=== PATIENT | female | born 1965 | race Hispanic/Latino ===

== ENCOUNTER 2019-02-01 14:35 | Emergency (ER) | payer OTHER, SELFPAY ==
[2019-02-01 14:35] VITALS: BP 98/75; PULSE 73; RESP 15; TEMP 36.6; O2SAT 97
[2019-02-01] MEDS: PROPARACAINE 0.5% OPHTH SOL 1 DROPS EYE-BOTH (15:00)
--- NOTE | 2019-02-01 15:01 | ED_ITS ---
HPI - Eye Problem General Chief complaint: Eye Problems Stated complaint: got chemicals in eyes at work Time Seen by Provider: 02/01/19 14:53 Source: patient Mode of arrival: ambulatory Limitations: no limitations History of Present Illness HPI Narrative: Patient complains of burning in her eyes after chlorine splashed in her eyes while at work. Patient states she went to the eye wash station washed her eyes for about 25 minutes before coming to the emergency department. Patient states she does were glasses for far vision, but was not wearing glasses at the time of the incident. She denies wearing contact lenses. Patient states that her vision is slightly blurry, but otherwise seems more or less normal. Patient denies any chemical injury to any other part of her body. Related Data Previous Rx's Medication Instructions Recorded ketorolac 1 drop EYE-BOTH QID #5 ml 02/01/19 Allergies Allergy/AdvReac Type Severity Reaction Status Date / Time No Known Drug Allergies Allergy Verified 02/01/19 14:42 Review of Systems Constitutional Denies chills, Denies fever(s), Denies lethargy and Denies weakness Eyes Reports blurry vision, Reports irritation and Denies loss of vision ENT Ears, Nose, Mouth, and Throat: Denies change in voice, Denies neck pain and Denies sore throat Cardiovascular Denies chest pain, Denies irregular heart rhythm, Denies lightheadedness, Denies palpitations, Denies dyspnea, Denies dyspnea on exertion and Denies orthopnea Respiratory Denies cough, Denies dyspnea, Denies dyspnea on exertion and Denies wheezing Gastrointestinal Gastrointestinal: Denies abdominal pain, Denies change in bowel habits, Denies diarrhea, Denies nausea and Denies vomiting Genitourinary Denies hematuria, Denies flank pain, Denies urinary incontinence and Denies urinary urgency Musculoskeletal Denies neck pain Integumentary/Breasts Denies pruritus, Denies erythema, Denies rash and Denies wounds Neurologic Denies confusion, Denies loss of vision and Denies weakness Psychiatric Denies anxiety, Denies confusion, Denies depression, Denies homicidal ideation and Denies suicidal ideation Endocrine Denies palpitations Hematologic/Lymphatic Denies easy bruising Allergic/Immunologic Denies wheezing PFSH Medical History Healthy adult (Acute) Social History Smoking Status: Smoker, status unknown Social History Smoking Status: Smoker, status unknown Exam Initial Vital Signs Initial Vital Signs: Vital Signs Temperature 97.9 F 02/01/19 14:35 Pulse Rate 73 02/01/19 14:35 Respiratory Rate 15 02/01/19 14:35 Blood Pressure 98/75 02/01/19 14:35 Pulse Oximetry 97 02/01/19 14:35 Const General: cooperative and well developed Nutritional Appearance: well nourished Orientation: alert, awake, oriented x3 and not confused [facility] Head: normocephalic and atraumatic Ears: external ears normal Nose: external nose normal and No nasal discharge Face and sinus: face symmetric and No dry mucous membranes Mouth: oral mucosae normal and moist mucous membranes Teeth and gingiva: dentition normal Eyes General: appearance normal, both eyes and all related structures Eyelids: eyelids normal Conjunctivae: conjunctival abnormality (Injection, tearing) bilaterally Sclera: sclerae normal Pupils: PERRL EOM: EOM intact bilaterally Other: Fluorescein exam negative Neck Neck: normal visual inspection, trachea midline, No lymphadenopathy, No midline deformity and No JVD Lymphatic: No lymphedema Chest Chest: normal inspection of the chest Resp Effort & Inspection: normal respiratory effort, able to speak in complete sentences, no respiratory distress and no use of accessory muscles Skin General: no rashes or lesions noted, No jaundice and No petechiae Neuro General: alert, oriented x3, gait normal and no focal motor deficits Speech: speech normal Psych Appearance: well kempt Mental Status: mental status grossly normal Attitude: cooperative Thought Content: normal and suicidality Judgment: judgment good Course Course Narrative: Eye pH was performed on the patient's eyes, and found to be 7 bilaterally. Visual acuity was mildly decreased, but it is unclear what the patient's baseline is. Fluorescein exam did not show any abrasions. Patient was found to be feeling much better after proparacaine. We have discussed home management of symptoms, as well as the usual indications for return. We have also discussed the need for follow-up with Ophthalmology, should the patient experience any further issues with her eyes or eye sight. Orders Ordered: Discontinued Medications Diphtheria/Tetanus/Acell Pertussis (Adacel) 0.5 ml IM .ONCE ONE Stop: 02/01/19 15:08 Last Admin: 02/01/19 15:09 Dose: 0.5 ml Proparacaine HCl (Parcaine 0.5% Ophth Genet) 1 drops EYE-BOTH NOW ONE Stop: 02/01/19 15:00 Last Admin: 02/01/19 15:00 Dose: 1 drop Vital Signs - 8 hr 02/01/19 14:35 02/01/19 15:10 Temperature 97.9 F Pulse Rate 73 72 Respiratory Rate 15 16 Blood Pressure 98/75 Blood Pressure [Left Arm] 96/46 L Pulse Oximetry 97 97 MDM - Eye Problem Medical Records Attestation: I reviewed the patient's medical records. Discharge Plan Departure Patient Disposition: Home Clinical Impression: Acute chemical conjunctivitis Qualifiers: Laterality: bilateral Qualified Code(s): H10.213 - Acute toxic conjunctivitis, bilateral Discharge Date/Time: 02/01/19 15:29 Interventions: ED Discharge Assessment Last Done: 02/01/19 15:25 Instructions: DI for Chemical Eye Burn Prescriptions: New ketorolac 0.4 % drops 1 drop EYE-BOTH QID Qty: 5 RF: 0 Referrals: [facility] [Provider Group] (Follow-up as needed if your eyes worsen over the course of the rest of the week.)
--- NOTE | 2019-02-01 15:06 | PC.NURSE ---
reports while cleaning (soap and chlorine) sprayed unto bilateral eyes, occured at 2pm. denies other injuries. denies wearing gogles at work.
[2019-02-01] MEDS: TET,DIPH,PERTUSS(ACELL),VAC/PF 0.5 ML SYRINGE IM (15:09)
[2019-02-01 15:10] VITALS: BP 96/46; PULSE 72; RESP 16; O2SAT 97
== END 2019-02-01 15:29 | disposition home or self-care (01) ==
LOC: ED 15:31
PROVIDERS: Emergency Provider Emergency Medicine
DX: H10.213 Acute toxic conjunctivitis, bilateral (principal); Y99.0 Civilian activity done for income or pay; Z23 Encounter for immunization
CPT/HCPCS: 90471; 99283; 90715

== ENCOUNTER 2020-05-13 04:36 | Emergency (ER) | payer OTHER, SELFPAY ==
--- NOTE | 2020-05-13 04:41 | ED_ITS ---
HPI - General Adult General Chief complaint: Wound/Laceration Stated complaint: head cut/bleeding neck hurts done at work Time Seen by Provider: 05/13/20 04:37 Source: patient Mode of arrival: Ambulatory Limitations: no limitations History of Present Illness HPI narrative: 55-year-old female here for evaluation of a cut to her head and also neck pain. She states that she was at work. 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 She states that metal came down hitting her on the top of her head. She sustained a cut and it started to bleed. Happened approximately 5 minutes prior to arrival here in the ER. Is having some neck pain secondary to the head injury. Does not know when her last tetanus shot was. There was no loss of consciousness. Patient not on anticoagulation. Related Data Previous Rx's Medication Instructions Recorded ketorolac 1 drop EYE-BOTH QID #5 ml 02/01/19 Allergies Allergy/AdvReac Type Severity Reaction Status Date / Time No Known Drug Allergies Allergy Verified 02/01/19 14:42 Review of Systems Constitutional Constitutional: Reports headache(s) ENT Ears, Nose, Mouth, and Throat: Reports headache(s) and Reports neck pain Musculoskeletal Musculoskeletal: Reports neck pain Integumentary/Breasts Comments: Cut to top of head Neurologic Neurologic: Reports headache(s) Hematologic/Lymphatic Hematologic/Lymphatic: Denies easy bleeding and Denies easy bruising Patient History Medical History Healthy adult (Acute) Social History Smoking Status: Smoker, status unknown Smoking Status: Smoker, status unknown alcohol intake frequency: 0-2 drinks per day Substance Use Type: does not use Exam Initial Vital Signs Initial Vital Signs: Vital Signs Temperature 98.5 F 05/13/20 04:46 Pulse Rate 85 05/13/20 04:46 Respiratory Rate 16 05/13/20 04:46 Blood Pressure 142/75 H 05/13/20 04:46 Pulse Oximetry 99 05/13/20 04:46 Const General: healthy appearing Limitations: mental status not altered HENMT Head: laceration Back/Spine/Pelvis Cervical Spine: cervical muscular tenderness and No cervical spinal tenderness Skin Other: 4 cm laceration to the crown of her head. Neuro General: patient alert, patient awake and patient oriented x3 Procedures Laceration Repair Laceration 1: Site: scalp Size (cm): 4 Description: linear Depth: simple, single layer Local Anesthetic: lidocaine 1% and with epi Amount of anesthesia used (mL): 5 Pre-repair: wound explored Skin layer closed with: dora (Four dora) Course Orders Ordered: Discontinued Medications Acetaminophen (Tylenol) 975 mg PO NOW ONE Stop: 05/13/20 04:54 Last Admin: 05/13/20 04:59 Dose: 975 mg Documented by: MARILYN Diphtheria/Tetanus/Acell Pertussis (Adacel) 0.5 ml IM .ONCE ONE Stop: 05/13/20 04:54 Last Admin: 05/13/20 05:00 Dose: 0.5 ml Documented by: MARILYN Vital Signs Vital signs: Vital Signs - 8 hr 05/13/20 04:46 Temperature 98.5 F Pulse Rate 85 Respiratory Rate 16 Blood Pressure 142/75 H Pulse Oximetry 99 Medical Decision Making MDM Narrative Medical decision making narrative: No loss of consciousness. Scalp laceration was closed as described above. Suspect neck pain is muscular secondary to the trauma. No indication for radiologic studies. Tetanus was updated. Patient was given care and return precautions. Discharge Plan Departure Patient Disposition: Home Clinical Impression: Laceration CHI (closed head injury) Qualifiers: Encounter type: initial encounter Qualified Code(s): S09.90XA - Unspecified injury of head, initial encounter Instructions: DI for Laceration Repair of the Scalp, Closed Head Injury Activity Restrictions/Additional Instructions: The dora that were placed today do need to be removed in approximately 10 days. Your primary provider who can do this or you can contact the walk-in clinic here at the hospital. Until then you can shower like normal. You can use soap and water and shampoo like normal. Just be careful around the dora especially when your combing your hair. Your tetanus shot was updated today. You can take Tylenol and/or ibuprofen for any headaches or neck pain. Return to the emergency department for any new or worsening symptoms Prescriptions: No Action ketorolac 0.4 % drops 1 drop EYE-BOTH QID Qty: 5 RF: 0
[2020-05-13 04:46] VITALS: BP 142/75; PULSE 85; RESP 16; TEMP 36.9; O2SAT 99; BMI 23.3
[2020-05-13] MEDS: ACETAMINOPHEN 325 MG TABLET 975 MG PO (04:59)
[2020-05-13] MEDS: TET,DIPH,PERTUSS(ACELL),VAC/PF 0.5 ML SYRINGE IM (05:00)
[2020-05-13 05:20] VITALS: BP 118/70; PULSE 72; RESP 16; O2SAT 97
== END 2020-05-13 05:21 | disposition home or self-care (01) ==
PROVIDERS: Emergency Provider Emergency Medicine
DX: S01.91XA Laceration without foreign body of unspecified part of head, initial encounter (principal); S09.90XA Unspecified injury of head, initial encounter; M54.2 Cervicalgia; W22.8XXA Striking against or struck by other objects, initial encounter; Y99.0 Civilian activity done for income or pay; Z23 Encounter for immunization
CPT/HCPCS: 12002; 90471; 99283; 99284; 90715

== ENCOUNTER → 2020-12-06 15:27 | Outpatient (CLI) | payer OTHER, SELFPAY ==
[2020-12-06] MEDS: COVID-19 VACC, Ad26(JANSSEN)/PF 0.5 ML IM (15:59)
== END ==
PROVIDERS: Visit Provider Internal Medicine
DX: Z23 Encounter for immunization (principal)
CPT/HCPCS: 0031A; 91303